=== PATIENT | female | born 1970 | race Caucasian/White ===

== ENCOUNTER 2016-07-04 22:31 | Emergency (ER) | payer OTHER ==
--- NOTE | ~2016-07-04 | CR114 ---
[facility]. [facility] A Service of [facility] & [facility] RADIOLOGY TEXT RESULTS PATIENT: VINNY CRUMP LOCATION: SED : 74 UNIT #: [id number] AGE: [address]: Bertram Calero MD SEX: F ORDER DR: [id number] [place] [id number] E MR#: [id number] Acc #: [id number] NAME: VINNY CRUMP : 1970 SEX: F STUDY DATE/TIME: 07/04/2016 22:24 UNIT: SED ROOM: STUDY DESCRIPTION: CR Finger 2 View 5Th Lt Attending Physician: Bertram Calero M.D. Ordering Physician: Xenia Vega A.P.R.N. Primary Care Physician: Primary Care Physician No MEDICAL IMAGING REPORT This report is preliminary unless electronic signature is present. EXAM Left fifth digit, 07/04 at 22:24 INDICATIONS Pain and swelling after dog bite tonight. FINDINGS 3 views of the fifth digit were obtained. Soft tissue injury is noted on the palmar side of the proximal interphalangeal joint. No fractures are identified. There is a questionable minuscule faint radiopaque foreign body within the laceration bed. Correlate clinically. IMPRESSION No fracture is seen. There is soft tissue injury near the PIP joint. There may be a minuscule faint radiopaque foreign body within the laceration bed. Dictated by... Amaury Elizalde Jr., M.D. THIS IS AN ELECTRONICALLY VERIFIED REPORT Amaury Elizalde Jr., M.D. at 07/05/2016 5:56 AM KIERAK/[email or web address] TD: 07/05/2016 02:55 JOB #: [id number] MEDICAL IMAGING REPORT Page 1 of 1
[~2016-07-04 22:31] MED LIST: AUGMENTIN875 MG PO; MULTI-VITAMIN1 EAC1 PO; PERCOCET5/325 PO; ZYRTEC10 M2 PO
== END 2016-07-04 23:45 | disposition home or self-care (01) ==
LOC: SED 22:31
DX: S61.257A Open bite of left little finger without damage to nail, initial encounter (principal); F17.200 Nicotine dependence, unspecified, uncomplicated; Z23 Encounter for immunization; W54.0XXA Bitten by dog, initial encounter; Y92.009 Unspecified place in unspecified non-institutional (private) residence as the place of occurrence of the external cause
CPT/HCPCS: 73140; 90471; 90715; 99283